=== PATIENT | female | born 1940 | race Two or more races ===

== ENCOUNTER 2020-11-02 07:49 | Outpatient (CLI) | payer OTHER | END 2020-11-02 07:53 | disposition home or self-care (01) | LOC: RX STUDY 07:49 | PROVIDERS: ATTEND Internal Medicine Gastroenterology | DX: R13.0 Aphagia (principal) ==

== ENCOUNTER 2023-03-03 12:05 | Emergency (ER) | payer OTHER ==
[~2023-03-03] VITALS: Ht 160 cm; Wt 68.0 kg
[~2023-03-03 12:05] MED LIST: ACID REDUCER20 M1; CATAPRES0.3 MG; COZAAR100 MG; GLUMETZA500 MG; LEVOTHYROXINE25 MCG; NORVASC2.5 M1; TAMS0.4C PO; TOPROL XL25 M1; ZETIA10 MG; ZOCOR20 MG
== END 2023-03-03 21:11 | disposition home or self-care (01) ==
LOC: ER 12:05
DX: K52.9 Noninfective gastroenteritis and colitis, unspecified (principal); K52.89 Other specified noninfective gastroenteritis and colitis; E11.9 Type 2 diabetes mellitus without complications; Z79.84 Long term (current) use of oral hypoglycemic drugs; I10 Essential (primary) hypertension; E03.9 Hypothyroidism, unspecified; K57.30 Diverticulosis of large intestine without perforation or abscess without bleeding; N20.0 Calculus of kidney; K74.60 Unspecified cirrhosis of liver
CPT/HCPCS: 36415; 74177; 96365; 96366; 99284; J1885; J3490; Q9965